=== PATIENT | female | born 2000 | race American Indian/Alaskan Native ===

== ENCOUNTER 2021-01-17 10:47 | Day surgery (SDC) | payer MEDICAID ==
[2021-01-17] MEDS ORDERED: LACTATED RINGERS 1,000 ML IV SCH (11:30)
[2021-01-17] MEDS ORDERED: WATER FOR IRRIG STERILE 1,500 ML BOTTLE IR ONE ×2 (11:49→12:00)
[2021-01-17] MEDS ORDERED: IOHEXOL 300 MG/ML 50ML IV ONE ×2 (11:49→12:00)
[2021-01-17] MEDS ORDERED: propofoL 200 MG/20 ML VIAL IV ONE (11:59)
[2021-01-17] MEDS ORDERED: LIDOCAINE MPF (2%) 20 MG/1 ML VIAL 5 ML ONE (11:59)
[2021-01-17] MEDS ORDERED: fentaNYL 100 MCG/2 ML INJ ONE (12:00)
--- NOTE | 2021-01-17 12:16 | Anesthesia Day of Surgery ---
Anesthesia Day of Surgery - Day of Surgery Patient Examined: Yes Patient H&P Reviewed: Yes Patient is NPO: Yes
--- NOTE | 2021-01-17 12:17 | Anesthesia Consultation ---
Anesthesia Consult and Med Hx Date of service: 01/17/21 - Airway Anesthetic Teeth Evaluation: Good (Braces) ROM Head & Neck: Adequate Mental/Hyoid Distance: Adequate Mallampati Class: Class II Intubation Access Assessment: Good - Pre-Operative Health Status ASA Pre-Surgery Classification: ASA1 Proposed Anesthetic Plan: General - Pulmonary Hx Smoking: No - Cardiovascular System Hx Hypertension: No - Additional Comments Anesthesia Medical History Comments: seen at 11:54
[2021-01-17] MEDS ORDERED: HYDROmorphone 1 MG/1 ML INJ IV PRN ×2 (12:30)
[2021-01-17] MEDS ORDERED: ONDANSETRON 4 MG/2 ML INJ IV PRN (12:30)
[2021-01-17] MEDS ORDERED: PHENYLEPHRINE/NS 1,000 MCG/10 ML SYRINGE (OR USE) IV ONE (13:30)
[2021-01-17] MEDS ORDERED: ONDANSETRON 4 MG/2 ML INJ ONE (13:30)
--- NOTE | 2021-01-17 13:52 | Post Operative Note ---
Date of procedure: 01/17/21 Pre-op diagnosis: r ureteral stone Post-op diagnosis: same Findings: 8-9 mm Procedure: cysto ureteroscopy laser stent extr Anesthesia: GETA Surgeon: RAYA KAHN Estimated blood loss: none Pathology: none Specimen disposition: given to patient/family Condition: stable Disposition: PACU
--- NOTE | 2021-01-17 13:53 | Discharge Summary ---
Short Stay Discharge Plan Activity: other Weight Bearing Status: Full Weight Bearing Diet: low fat, low cholesterol Follow up with: PRIMARY CARE, [Primary Care Provider] - 7 Days RAYA KAHN MD [Staff Physician] - 7 Days
--- NOTE | 2021-01-17 14:21 | Fluoroscopy Report ---
FL retrograde urography INDICATION / CLINICAL INFORMATION: CALCULUS OF URETER. COMPARISON: None available. FINDINGS: Double-J stent exchange. Fluoroscopy time: 54 seconds. Fluoroscopic images: 5. Signer Name: Ciaran Young MD Signed: 01/17/2021 2:16 PM Workstation Name: [id number]
[2021-01-17 14:55] VITALS: BP 107/59
--- NOTE | 2021-01-17 15:34 | Post Anesthesia Evaluation ---
- Post Anesthesia Evaluation Patient Participated: Yes Airway Patent: Yes Stable Respiratory Function: Yes Nausea/Vomiting: No Temp > 96.8F: Yes Pain Manageable: Yes Adequeate Hydration: Yes Anesthesia Complications: No Block Receding Appropriately: Not Applicable Patient on Ventilator: No
--- NOTE | 2021-01-18 04:28 | Operative Report ---
DATE OF SURGERY: 01/17/2021 PREOPERATIVE DIAGNOSIS: Large right distal ureteral stone approximately one month. POSTOPERATIVE DIAGNOSIS: Large right distal ureteral stone approximately one month. PROCEDURES: Cystoscopy, right ureteroscopy, laser of stone, extraction of multiple fragments, double-J stent replacement. SURGEON: Juan Shanks MD ANESTHESIA: General. FINDINGS: This is a woman who just delivered and during her , had an 8-mm distal stone. It was quite large. She was managed with a stent until delivery, which was approximately a month ago. She now presents for treatment. DESCRIPTION OF PROCEDURE: The patient was brought to the OR and placed on the operating table. Following induction of anesthesia, placed in lithotomy position, prepped and draped in the usual sterile fashion. Cystourethroscopy showed the stent, which was extracted through the meatus. A wire coiled in the kidney and ureteroscopy revealed a very large stone at the level of the pelvic brim. Laser was used 200 fiber and broke it into approximately 20 pieces. Most of these pieces were removed with a 3-German grasper, 5 and 10-German. The retrograde showed wide open and a double-J stent coiled in the kidney and bladder. We left the string. The patient tolerated the procedure well and brought to recovery in stable condition. TID: [id number] RECEIPT: [id number] OSEAS/VERO
== END 2021-01-17 14:50 | disposition home or self-care (01) ==
LOC: OR 10:47 → EDBD 12:30 → EDSEX 12:30 → OR 14:50
PROVIDERS: ATTEND Urology
DX: N20.1 Calculus of ureter (principal); Z88.8 Allergy status to other drugs, medicaments and biological substances; Z79.899 Other long term (current) drug therapy; Z98.891 History of uterine scar from previous surgery; Z98.890 Other specified postprocedural states; Z86.2 Personal history of diseases of the blood and blood-forming organs and certain disorders involving the immune mechanism
CPT/HCPCS: 52356; 74420; 81025; C1769; C2617; J1956; J2370; J2405; J2704; J3010; J7120; Q9967